=== PATIENT | male | born 1975 | race Caucasian/White ===

== ENCOUNTER 2017-06-22 12:37 | Emergency (ER) | payer MEDICARE, MEDICAID ==
--- NOTE | 2017-06-22 13:02 | Emergency Department Record ---
History of Present Illness - General Chief Complaint: Back Pain/Injury Stated Complaint: PAIN RT BUTT CHECK RADIATING DOWN RT LEG Time Seen by Provider: 06/22/17 12:54 Source: Patient Mode of Arrival: Ambulatory Limitations: No limitations - History of Present Illness Initial Comments: 42 yo male presents with right flank pain on and off since February. The pain is sharp. 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 No fevers, chills, dysuria or changes in urination or output. The pain occasionally goes down the right leg. No weakness or numbness. He is followed at the [facility] for his transplant. No tenderness over the renal transplant. He does not know his baseline renal function. No abdominal pain. No changes in his medications. The pain does seem worse with standing for prolonged periods of time. MD Complaint: Back pain Onset/Timin -: Month(s) Similar Symptoms Previously: Yes Place: Home Radiation: Right leg Severity scale (1-10): 5 Quality: Aching, Sharp Consistency: Constant Improves With: None Worsens With: Movement, Walking Context: Unknown Associated Symptoms: Denies other symptoms - Related Data Home Medications Medication Instructions Recorded Confirmed Last Taken Alprazolam 1 mg PO DAILY 06/22/17 06/22/17 Unknown Atomoxetine HCl [Strattera] 10 mg PO DAILY 06/22/17 06/22/17 Unknown Clonidine HCl 0.1 mg PO BID 06/22/17 06/22/17 Unknown Gabapentin [Neurontin] 300 mg PO BID 06/22/17 06/22/17 Unknown Lisinopril [Zestril] 10 mg PO BID 06/22/17 06/22/17 Unknown Metoprolol Tartrate [Lopressor] 25 mg PO Q12H 06/22/17 06/22/17 Unknown Mycophenolate Mofetil [Cellcept] 1,000 mg PO BID 06/22/17 06/22/17 Unknown Nifedipine [Afeditab Cr] 30 mg PO BID 06/22/17 06/22/17 Unknown Olanzapine [Zyprexa] 20 mg PO BID 06/22/17 06/22/17 Unknown Omeprazole [Prilosec] 20 mg PO DAILY 06/22/17 06/22/17 Unknown Prednisone 5 mg PO DAILY 06/22/17 06/22/17 Unknown Tacrolimus [Prograf] 1.5 mg PO BID 06/22/17 06/22/17 Unknown Zolpidem Tartrate [Ambien] 5 mg PO QHS 06/22/17 06/22/17 Unknown Allergies Allergy/AdvReac Type Severity Reaction Status Date / Time amoxicillin Allergy ITCHING Verified 06/22/17 12:50 NSAIDS (Non-Steroidal Allergy HYPERSENSIT Verified 06/22/17 12:50 Anti-Inflamma IVITY risperidone [From Risperdal] Allergy SWELLING Verified 06/22/17 12:50 (GENERAL) Travel Screening - Travel/Exposure Within Last 30 Days Have you traveled within the last 30 days?: No Review of Systems Constitutional: Denies: Chills, Fever, Malaise, Weakness Eyes: Denies: Eye discharge ENT: Denies: Congestion, Throat pain Respiratory: Denies: Cough Cardiovascular: Denies: Chest pain, Syncope Endocrine: Denies: Fatigue Gastrointestinal: Denies: Abdominal pain, Diarrhea, Nausea, Vomiting Genitourinary: Denies: Discharge, Dysuria, Frequency, Hematuria, Retention, Testicular pain, Testicular mass, Urgency Musculoskeletal: Reports: Back pain Skin: Denies: Bruising, Change in color, Rash Neurological: Denies: Headache, Numbness, Weakness Psychiatric: Denies: Anxiety Hematological/Lymphatic: Denies: Blood Clots, Easy bleeding, Easy bruising, Swollen glands Past Medical History - SOCIAL HISTORY Smoking Status: Current every day smoker Alcohol Use: Occasional Drug Use Detail:: Marijuana - RESPIRATORY Hx Respiratory Disorders: No - CARDIOVASCULAR Hx Cardio Disorders: Yes Hx Abnormal EKG: Yes Hx Hypertension: Yes - NEURO Hx Neuro Disorders: Yes Hx Seizures: Yes (as teenager) - GI Hx GI Disorders: No - Hx Genitourinary Disorders: Yes Hx Renal Disease: Yes - ENDOCRINE Hx Endocrine Disorders: Yes Hx Thyroid Disease: Yes - MUSCULOSKELETAL Hx Musculoskeletal Disorders: Yes Hx Back Injury: Yes - PSYCH Hx Psych Problems: Yes Hx Anxiety: Yes Hx Depression: Yes - HEMATOLOGY/ONCOLOGY Hx Hematology/Oncology Disorders: Yes Hx Anemia: Yes Hx Blood Transfusions: Yes Hx Blood Transfusion Reaction: No Family Medical History Any Significant Family History?: No Physical Exam - General General Appearance: Alert, Oriented x3, Cooperative, No acute distress Limitations: No limitations - Head Head exam: Normal inspection - Eye Eye exam: Normal appearance. negative: Conjunctival injection, Scleral icterus - ENT ENT exam: Normal exam Ear exam: Normal external inspection Nasal Exam: Normal inspection Mouth exam: Normal external inspection Teeth exam: Normal inspection Throat exam: Normal inspection - Neck Neck exam: Normal inspection, Full ROM. negative: Tenderness - Respiratory Respiratory exam: Normal lung sounds bilaterally. negative: Respiratory distress - Cardiovascular Cardiovascular Exam: Regular rate, Normal rhythm, Normal heart sounds - GI/Abdominal GI/Abdominal exam: Soft. negative: Distended, Guarding, Rebound, Rigid, Tenderness - Rectal Rectal exam: Deferred - exam: Deferred - Extremities Extremities exam: Normal inspection, Full ROM, Normal capillary refill. negative: Pedal edema, Tenderness - Back Back exam: Reports: CVA tenderness (R), Full ROM, Paraspinal tenderness, Tenderness. Denies: CVA tenderness (L) - Neurological Neurological exam: Alert, Normal gait, Oriented X3 - Psychiatric Psychiatric exam: Normal affect, Normal mood. negative: Agitated, Anxious - Skin Skin exam: Dry, Intact, Normal color, Warm Course Vital Signs 06/22/17 12:41 Temperature 97.4 F L Pulse Rate 70 Respiratory 20 Rate Blood Pressure 118/49 Pulse Ox 100 - Reevaluation(s) Reevaluation #1: The CBC was reviewed No acute changes The patient is afebrile The CT scan was reviewed. Mildly prominent collecting system, no obstruction or calculi, scattered lymph nodes noted 06/22/17 15:02 The CR today is 1.5 [facility] was reviewed the CR on 06/04 was 1.5, in 04/2017 1.5, in 03/2017 it was 1.5, in 02/2017 it was 1.66 No changes in his renal function. 06/22/17 15:03 06/22/17 15:18 The UA is negative for any changes Medical Decision Making - Lab Data Result diagrams: 06/22/17 13:25 06/22/17 13:25 Disposition Disposition: Discharge Clinical Impression: Lumbar pain Sciatica Qualifiers: Laterality: right Qualified Code(s): M54.31 - Sciatica, right side Disposition: Home, Self-Care Condition: (1) Good Instructions: Low Back Strain (ED), Sciatica (ED) Additional Instructions: Call your family doctor and your transplant doctor tomorrow for close follow up of the tests Be seen immediately if you have fever, chills, changes in urine output or any new concerns Stay well hydrated Forms: Patient Portal Access Time of Disposition: 15:20 Quality - Quality Measures Quality Measures: N/A - Blood Pressure Screening Does Patient Have Any of the Following: No Blood Pressure Classification: Normal BP Reading Systolic Measurement: 118 Diastolic Measurement: 49 Screening for High Blood Pressure: < Normal BP, F/U Not Required > [G8783]
[2017-06-22 13:36] LABS: HEMATOCRIT 47.3 % (42.0-52.0); HEMOGLOBIN 14.9 gm/dl (14.0-18.0); MEAN CELL VOLUME 92.7 fl (81-97); MEAN CORPUSCULAR HEMOGLOBIN 29.2 pg (27-33); MEAN CORPUSCULAR HGB CONC 31.5 g/dl (32-36); PLATELET COUNT 143 K/uL (130-400); RED CELL DISTRIBUTION WIDTH 14.4 % (11.5-14.5); WHITE BLOOD COUNT W/O DIFF 5.9 K/uL (4.2-12.2)
[2017-06-22 13:52] LABS: PLATELET ESTIMATE NORMAL (NORMAL)
[2017-06-22 14:31] LABS: CREATININE 1.5 mg/dL (0.7-1.2)
[2017-06-22 15:10] LABS: URINE APPEARANCE CLEAR; URINE BILIRUBIN NEGATIVE (NEGATIVE); URINE BLOOD NEGATIVE (NEGATIVE); URINE COLOR YELLOW; URINE GLUCOSE (UA) NEGATIVE (NEGATIVE); URINE KETONE NEGATIVE (NEGATIVE); URINE LEUKOCYTE ESTERASE NEGATIVE (NEGATIVE); URINE NITRITE NEGATIVE (NEGATIVE); URINE PROTEIN NEGATIVE (NEGATIVE); URINE UROBILINOGEN 0.2 E.U./dL (0.20 - 1.00)
--- NOTE | 2017-06-23 11:26 | CT SCAN REPORT ---
EXAM: CT OF THE ABDOMEN AND PELVIS WITHOUT CONTRAST HISTORY: RIGHT FLANK PAIN. TECHNIQUE: Sequential axial images were obtained from the diaphragms through the ischiorectal fossa without intravenous or oral contrast administration. FINDINGS: The [place] kidneys are atrophic. There is vascular calcification present. Nonopacified liver, gallbladder, and pancreas appears normal. The spleen appears normal. The adrenal glands appear normal. The small bowel appears normal. There is a transplanted kidney in the right lower quadrant. There is mild prominence of the collecting system of the transplanted kidney. There are small surrounding lymph nodes. No stone is appreciated. Superimposed infectious/inflammatory process cannot be entirely excluded. There are extensive vascular calcifications present. The urinary bladder appears normal. The osseous structures are normal. IMPRESSION: 1. TRANSPLANTED KIDNEY IN THE RIGHT LOWER QUADRANT. THERE IS MILD PROMINENCE OF THE RENAL COLLECTING SYSTEM WITHOUT EVIDENCE OF STONE. THERE ARE SMALLL SURROUNDING LYMPH NODES. SUPERIMPOSED INFECTIOUS/INFLAMMATORY PROCESS CANNOT BE ENTIRELY EXCLUDED. 2. ATROPHIC [place] KIDNEYS WITH EXTENSIVE VASCULAR CALCIFICATIONS AND CYSTIC LESIONS. JOB NUMBER: [id number] [facility]
== END 2017-06-22 15:40 | disposition home or self-care (01) ==
LOC: ER 12:37
DX: M54.31 Sciatica, right side (principal); I10 Essential (primary) hypertension; F17.210 Nicotine dependence, cigarettes, uncomplicated; Z94.0 Kidney transplant status
CPT/HCPCS: 74176; 80048; 81003; 83880; 85027; 99283; 99284

== ENCOUNTER 2017-10-15 19:57 | Emergency (ER) | payer MEDICARE, MEDICAID ==
--- NOTE | 2017-10-15 20:49 | Emergency Department Record ---
History of Present Illness - General Chief Complaint: Abdominal Pain Stated Complaint: RT SIDE ABDOMINAL PAIN Time Seen by Provider: 10/15/17 20:28 Source: Patient Mode of Arrival: Ambulatory Limitations: No limitations - History of Present Illness Initial Comments: The patient is here due to AP for one day. He has had a cough and congestion for over a month and just saw his PCP for it. He had taken a Zpak and was placed on Levaquin yesterday. Now he is having sharp stabbing RUQ and RLQ AP. There is no worsening cough, any fever, chills, dysuria, hematuria, nausea, or vomiting. The patient states deep breaths makes the AP worse. He had had a kidney transplant and his transplanted kidney is on the R side. MD Complaint: Abdominal pain Onset/Timin -: Days(s) Location: RUQ Radiation: RLQ Severity scale (1-10): 7 Quality: Fullness Consistency: Constant, Getting worse Improves With: Rest Worsens With: Other - Related Data Allergies Allergy/AdvReac Type Severity Reaction Status Date / Time amoxicillin Allergy ITCHING Verified 06/22/17 12:50 NSAIDS (Non-Steroidal Allergy HYPERSENSIT Verified 06/22/17 12:50 Anti-Inflamma IVITY risperidone [From Risperdal] Allergy SWELLING Verified 06/22/17 12:50 (GENERAL) Travel Screening - Travel/Exposure Within Last 30 Days Have you traveled within the last 30 days?: Yes Location Detail:: [place], [place] - Travel Symptoms Symptom Screening: None Review of Systems Constitutional: Reports: Malaise. Denies: Chills, Fever Eyes: Denies: Eye discharge ENT: Reports: Congestion Respiratory: Reports: Cough. Denies: Dyspnea Cardiovascular: Denies: Arrhythmia Endocrine: Denies: Fatigue Gastrointestinal: Reports: Abdominal pain. Denies: Diarrhea, Nausea, Vomiting Genitourinary: Denies: Dysuria Musculoskeletal: Denies: Arthralgia Past Medical History - SOCIAL HISTORY Smoking Status: Current every day smoker Alcohol Use: None - RESPIRATORY Hx Respiratory Disorders: No - CARDIOVASCULAR Hx Cardio Disorders: Yes Hx Abnormal EKG: Yes Hx Hypertension: Yes - NEURO Hx Neuro Disorders: Yes Hx Seizures: Yes (as teenager) - GI Hx GI Disorders: No - Hx Genitourinary Disorders: Yes Hx Dialysis: Yes (12 yrs.) Hx Renal Disease: Yes (Renal transplant) - ENDOCRINE Hx Endocrine Disorders: Yes Hx Thyroid Disease: Yes - MUSCULOSKELETAL Hx Musculoskeletal Disorders: Yes Hx Back Injury: Yes - PSYCH Hx Psych Problems: Yes Hx Anxiety: Yes Hx Depression: Yes - HEMATOLOGY/ONCOLOGY Hx Hematology/Oncology Disorders: Yes Hx Anemia: Yes Hx Blood Transfusions: Yes Hx Blood Transfusion Reaction: No Family Medical History Any Significant Family History?: Yes Family Hx Comment (NOT TO BE USED IN PLACE OF ITEMS BELOW): Father w/Bels PALSY ; Mom w/mesoteric artery syndrome Hx Diabetes: Father Hx HTN: Father Physical Exam - General General Appearance: Alert, Oriented x3, Cooperative, No acute distress - Head Head exam: Atraumatic, Normocephalic, Normal inspection - Eye Eye exam: Normal appearance, PERRL, EOMI - ENT Throat exam: Normal inspection. negative: Tonsillar erythema, Tonsillar exudate - Neck Neck exam: Normal inspection, Full ROM. negative: Tenderness - Respiratory Respiratory exam: Normal lung sounds bilaterally. negative: Respiratory distress - Cardiovascular Cardiovascular Exam: Regular rate, Normal rhythm, Normal heart sounds - GI/Abdominal GI/Abdominal exam: Soft, Normal bowel sounds. negative: Distended, Guarding, Rebound, Rigid, Tenderness - Extremities Extremities exam: Normal inspection, Full ROM, Normal capillary refill. negative: Tenderness - Neurological Neurological exam: Alert. negative: Motor sensory deficit Course Vital Signs 10/15/17 20:08 Temperature 98.5 F Pulse Rate 84 Respiratory 18 Rate Blood Pressure 134/104 Pulse Ox 99 - Reevaluation(s) Reevaluation #1: The patient is doing very well at this time. He is resting comfortably drinking fluids in no discomfort. I did explain to him that his lab tests do appear WNL' s for him. We are still waiting on his xray and CT reports. 10/15/17 22:28 Reevaluation #2: The patient is doing very well at this time. I did discuss the Xray and CT results which do demonstrate an infiltrate in the R lower lobe posteriorly. The patient is to continue his Levaquin and see his PCP early next week for recheck. He also is to discuss the need for a repeat CXR with Lordotic views in a month or two. 10/15/17 22:56 Medical Decision Making - Data Complexity MDM Data: Labs Ordered and/or Reviewed, X-Ray Ordered and/or Reviewed - Lab Data Result diagrams: 10/15/17 20:30 10/15/17 20:30 - Radiology Data Radiology results: Report reviewed (CXR: Neg for infiltrate but possible nodule RUL (Pt aware). CT: Neg for acute intra-abdominal process but infiltrate R lower lobe posteriorly.) Disposition Disposition: Discharge Clinical Impression: Pneumonia Qualifiers: Pneumonia type: due to unspecified organism Laterality: right Lung location: lower lobe of lung Qualified Code(s): J18.1 - Lobar pneumonia, unspecified organism Disposition: Home, Self-Care Condition: (2) Stable Instructions: Pneumonitis (ED) Additional Instructions: Please continue the Levaquin as directed along with your normal medicines. Please see your family doctor early next week for recheck and please also discuss the need for the repeat CXR with Lordotic views. Return to the ER for any worsening symptoms, pain, fever, or vomiting. Forms: Patient Portal Access Time of Disposition: 22:56 Quality - Quality Measures Quality Measures: N/A - Blood Pressure Screening View Details: Yes Does Patient Have Any of the Following: Active Dx of HTN Blood Pressure Classification: Hypertensive Reading Systolic Measurement: 134 Diastolic Measurement: 104 Screening for High Blood Pressure: Patient Exclusion, Hx of HTN [G9744]
[2017-10-15 21:04] LABS: URINE APPEARANCE CLEAR; URINE BILIRUBIN NEGATIVE (NEGATIVE); URINE BLOOD NEGATIVE (NEGATIVE); URINE COLOR YELLOW; URINE GLUCOSE (UA) NEGATIVE (NEGATIVE); URINE KETONE NEGATIVE (NEGATIVE); URINE LEUKOCYTE ESTERASE NEGATIVE (NEGATIVE); URINE NITRITE NEGATIVE (NEGATIVE); URINE PROTEIN NEGATIVE (NEGATIVE); URINE UROBILINOGEN 0.2 E.U./dL (0.20 - 1.00)
[2017-10-15 21:05] LABS: BASO % 0.2 % (0-6); GRAN % 77.1 % (47-80); HEMATOCRIT 37.5 % (42.0-52.0); LYMPH % 8.6 % (16-45); MEAN CELL VOLUME 90.4 fl (81-97); MEAN CORPUSCULAR HEMOGLOBIN 28.9 pg (27-33); MEAN PLATELET VOLUME 12.9 fl (7.4-10.4); MONO % 14.1 % (0-9); PLATELET COUNT 128 K/uL (130-400); RED BLOOD COUNT 4.15 M/uL (4.40-5.70); WHITE BLOOD COUNT W/O DIFF 5.5 K/uL (4.2-12.2)
[2017-10-15 21:18] LABS: BLOOD UREA NITROGEN 27 mg/dL (6-20); CREATININE 1.6 mg/dL (0.7-1.2); EST GLOMERULAR FILTRATION RATE 51 mL/min; TOTAL PROTEIN 7.2 g/dL (6.6-8.7)
[2017-10-15 21:21] LABS: GLUCOSE,RANDOM 91 mg/dL (74-109)
[2017-10-15 21:23] LABS: ALBUMIN 4.3 g/dL (4.0-5.0); ALKALINE PHOSPHATASE 99 U/L (40-129); ALT/SGPT 11 U/L (<41); AST/SGOT 18 U/L (10.0-50.0); BILIRUBIN,DIRECT < 0.2 mg/dL (0-0.3); LIPASE 31 U/L (13-60)
--- NOTE | 2017-10-17 13:53 | RADIOLOGY REPORT ---
EXAM: CHEST, TWO VIEWS HISTORY: COUGH, SICK FOR A MONTH AND A HALF WITH A COLD. TECHNIQUE: PA and lateral views of the chest were obtained. Comparison: None. FINDINGS: The heart size is normal. No definite acute infiltrate is seen. No pleural effusion or pneumothorax evident. The patient is somewhat rotated on the lateral view. On the frontal view there is a slightly nodular density about 7.3 mm in size overlying the right upper lung. This is probably just overlapping structures with no discreet nodule identified on the lateral view. Short term follow-up PA and lordotic views suggested to be certain this appearance does not persist. IMPRESSION: 1. NO ACUTE INFILTRATE IDENTIFIED. 2. NODULAR DENSITY OVERLYING THE RIGHT UPPER LUNG ON THE FRONTAL VIEW ONLY PROBABLY JUST DUE TO OVERLAPPING STRUCTURES. FOLLOW-UP SHORT TERM PA AND LORDOTIC VIEWS SUGGESTED. JOB NUMBER: [id number] [facility]
--- NOTE | 2017-10-17 14:28 | CT SCAN REPORT ---
EXAM: EMERGENCY CT SCAN OF THE ABDOMEN AND PELVIS WITHOUT CONTRAST HISTORY: RIGHT UPPER ABDOMINAL PAIN. PRIOR HISTORY SHEET FROM THE CT OF INDICATES RIGHT SIDED RENAL TRANSPLANT AND APPENDECTOMY. TECHNIQUE: Axial CT scan of the abdomen and pelvis was performed without oral or IV contrast at the referring physician's request. Comparison: CT of the abdomen and pelvis 06/22/17. FINDINGS: Upper images demonstrate apparent prominent calcification in the region of the mitral annulus and possibly involving the aortic valve as well. Mild pericardial fluid actually appearing slightly decreased from before. There is a patch of infiltrate in the right lower lobe new from the prior study and may well represent pneumonitis in the right lower lobe. This was not clearly seen on today's chest x-ray, probably obscured by the superior aspect of the liver on the frontal view and by the spine on the lateral view. No calcified gallstones seen within the gallbladder. The [place] kidneys are again seen to be quite atrophic with some small low attenuation lesions as before presumably small bilateral renal cysts. There is no hydronephrosis in either [place] kidney and no ureteral calculus within either [place] ureter. No bladder calculus evident. There is a somewhat diverticulum like outpouching of the right side of the bladder which appears to extend a short distance into a small right inguinal hernia. A similar appearance was seen previously. Transplanted kidney in the right iliac fossa again seen. Mild prominence of the renal collecting systems similar to before. No intrarenal calculus seen within the transplanted kidney and no ureteral calcification in the transplant ureter evident. The insertion of the transplant ureter into the bladder probably occurs within the diverticulum like outpouching of the bladder which may therefore be postoperative in nature. Evaluation of the bowel and viscera extremely limited without oral or IV contrast. Given this limitation, no definite hepatic, splenic, adrenal, or pancreatic mass identified. There is probably an approximately 3.2 cm diverticulum arising from the cardia of the stomach. This was present previously as well. Slightly prominent right inguinal lymph nodes similar to before. The appendix is not well seen without contrast, but no appendicitis identified. No free intraperitoneal air or free intraperitoneal fluid identified. Degenerative changes at the L4-L5 interspace as before. IMPRESSION: 1. PATCH OF INFILTRATE IN THE RIGHT POSTERIOR COSTOPHRENIC ANGLE PROBABLY REPRESENTING PNEUMONITIS. 2. VERY ATROPHIC [place] KIDNEYS PROBABLY WITH MULTIPLE CYSTS PREVIOUSLY NOTED. THE LARGEST OF THESE IS LOCATED ARISING EXOPHYTICALLY OFF THE LOWER POLE OF THE LEFT KIDNEY BEFORE. 3. TRANSPLANT KIDNEY IN THE RIGHT ILIAC FOSSA BEFORE. SLIGHT PROMINENCE OF THE RENAL COLLECTING SYSTEM OF THIS TRANSPLANT KIDNEY BEFORE. THE TRANSPLANT KIDNEY'S URETER PROBABLY INSERTS INTO THE BLADDER AT THE SITE OF A SOMEWHAT DIVERTICULUM LIKE OUTPOUCHING FROM THE RIGHT SIDE OF THE BLADDER ANTERIORLY TOWARDS A SMALL RIGHT INGUINAL HERNIA BEFORE. 4. DIVERTICULUM ARISING FROM THE CARDIA OF THE STOMACH MEASURING ABOUT 3.2 CM IN SIZE ALSO PRESENT PREVIOUSLY. 5. NO FREE AIR OR FREE FLUID EVIDENT. JOB [facility]BER: [id number] [facility]
== END 2017-10-15 23:01 | disposition home or self-care (01) ==
LOC: ER 19:57
DX: J18.1 Lobar pneumonia, unspecified organism (principal); R10.84 Generalized abdominal pain; I10 Essential (primary) hypertension; F17.210 Nicotine dependence, cigarettes, uncomplicated; Z94.0 Kidney transplant status
CPT/HCPCS: 71046; 74176; 80048; 80076; 81003; 83690; 85025; 99283; 99284